=== PATIENT | female | born 1945 | race Caucasian/White ===

== ENCOUNTER 2016-07-02 22:30 | Emergency (ER) | payer MEDICARE, OTHER ==
[2016-07-03 00:20] LABS: HEMOGLOBIN 12.8 gm/dl (12.3-15.3); RED BLOOD COUNT 4.41 M/UL (4.00-5.10); WHITE BLOOD COUNT 7.6 K/UL (4.5-11.0)
[2016-07-03 00:39] LABS: BUN/CREATININE RATIO 15 (0-10)
== END 2016-07-03 01:40 | disposition home or self-care (01) ==
LOC: ER1 22:30
PROVIDERS: Family Medicine
DX: R07.9 Chest pain, unspecified (principal); M79.602 Pain in left arm; I51.9 Heart disease, unspecified; Z85.3 Personal history of malignant neoplasm of breast; Z88.1 Allergy status to other antibiotic agents; Z79.899 Other long term (current) drug therapy
CPT/HCPCS: 36415; 71010; 80053; 82550; 82553; 83874; 84484; 85025; 93005; 99285

== ENCOUNTER → 2016-07-16 | Outpatient (CLI) | payer MEDICARE, OTHER | LOC: NM 08:07 → ECHO 11:00 | DX: I20.9 Angina pectoris, unspecified (principal); I34.0 Nonrheumatic mitral (valve) insufficiency; I25.2 Old myocardial infarction; R06.02 Shortness of breath; R07.9 Chest pain, unspecified; I27.2 Other secondary pulmonary hypertension; R94.31 Abnormal electrocardiogram [ECG] [EKG] | CPT/HCPCS: ECHO; 78452; 93005; 93017; 93306; A9502; J2785 ==

== ENCOUNTER → 2020-04-10 | Outpatient (CLI) | payer MEDICARE ==
[~2020-04-10] MED LIST: ACCUPRIL20 MG PO; ALL DAY ALLERGY10 M2 PO; ARIMIDEX1 MG PO; ECOTRIN81 MG PO; FOSAMAX70 MG PO; IMDUR ER TAB 3030 MG PO; K-DUR TAB 20 M20 MEQ PO; LASIX20 MG PO; LORTAB 5-325 M1 EACH PO; MICROZIDE12.5 MG PO; NEURONTIN 300300 MG PO; NITROSTAT 0.40.4 MG SL; PLAVIX 75 MG TA75 MG PO; PROTONIX 20 MG20 MG PO
== END ==
LOC: MAMO 07:55
DX: Z12.31 Encounter for screening mammogram for malignant neoplasm of breast (principal); Z90.11 Acquired absence of right breast and nipple; Z85.3 Personal history of malignant neoplasm of breast
CPT/HCPCS: 77063; 77067

== ENCOUNTER → 2020-09-09 | Outpatient (CLI) | payer MEDICARE | LOC: EXRD 07:49 | DX: I71.4 Abdominal aortic aneurysm, without rupture (principal) | CPT/HCPCS: 93979 ==

== ENCOUNTER → 2021-04-14 | Outpatient (CLI) | payer MEDICARE | LOC: MAMO 08:00 | DX: Z12.31 Encounter for screening mammogram for malignant neoplasm of breast (principal); C50.819 Malignant neoplasm of overlapping sites of unspecified female breast; C77.3 Secondary and unspecified malignant neoplasm of axilla and upper limb lymph nodes; R30.9 Painful micturition, unspecified; Z51.11 Encounter for antineoplastic chemotherapy | CPT/HCPCS: 77063; 77067; 77080 ==

== ENCOUNTER → 2021-06-30 | Outpatient (CLI) | payer MEDICARE | LOC: US 08:16 → KOH-I 07-07 10:30 | DX: I71.4 Abdominal aortic aneurysm, without rupture (principal) | CPT/HCPCS: 93979 ==

== ENCOUNTER → 2021-10-08 | Outpatient (CLI) | payer MEDICARE | LOC: KOH-I 15:44 | DX: R10.13 Epigastric pain (principal) | CPT/HCPCS: 74018 ==